=== PATIENT | male | born 1980 | race Two or more races ===

== ENCOUNTER 2022-08-14 19:22 | Emergency (ER) | payer BC, MEDICAID ==
[~2022-08-14] VITALS: Ht 180.3 cm; Wt 87.1 kg
--- NOTE | 2022-08-14 20:41 | NUR ---
BIBFRIEND FROM HOME C/O LEFT FOOT PAIN & NUMBNESS S/P STEPPING ON NAIL TODAY. TDAP NOT UTD.
[2022-08-14] MEDS ORDERED: IBUPROFEN 600 MG TABLET PO ONE (21:00)
[2022-08-14] MEDS ORDERED: TDAP [DIPH/PERTUSSIS/TET] 0.5 ML VIAL IM ONE ×2 (21:00→21:03)
[2022-08-14] MEDS ORDERED: HYDROCODONE/APAP 5/325MG TABLET PO ONE (21:00)
[2022-08-14] MEDS ORDERED: HYDROCODONE/APAP 5/325MG TABLET ONE (21:02)
[2022-08-14] MEDS ORDERED: IBUPROFEN 600 MG TABLET ONE (21:03)
[2022-08-14] MEDS ORDERED: HYDR-3972 PO ×3 (21:42→23:01)
[2022-08-14] MEDS ORDERED: IBUP-1953 PO ×2 (21:42→21:49)
[2022-08-14] MEDS ORDERED: CLIN300C12 PO ×2 (21:42→21:49)
--- NOTE | 2022-08-14 21:55 | NUR ---
Patient discharged to home in stable condition. Written and verbal after care instructions given. Patient verbalizes understanding of instruction. Patient given written and verbal discharge instructions. Patient verbalizes understanding of instructions. Patient is ambulatory with steady gait. Ambulatory with crutches
[2022-08-14 22:05] VITALS: BP 132/71
--- NOTE | 2022-08-14 22:06 | NUR ---
PATIENT WAS EDUCATED ON HOW TO USE CRUTCHES
== END 2022-08-14 22:06 | disposition home or self-care (01) ==
LOC: ER 19:26
DX: S91.332A Puncture wound without foreign body, left foot, initial encounter (principal); F17.200 Nicotine dependence, unspecified, uncomplicated; Z60.2 Problems related to living alone; Z79.899 Other long term (current) drug therapy; W22.8XXA Striking against or struck by other objects, initial encounter; Y93.89 Activity, other specified; Y92.89 Other specified places as the place of occurrence of the external cause; Y99.8 Other external cause status
CPT/HCPCS: 73630-TC; 90715